=== PATIENT | female | born 1975 | race Caucasian/White ===

== ENCOUNTER 2019-01-15 22:40 | Emergency (ER) | payer BC ==
[~2019-01-15] VITALS: Ht 165.1 cm; Wt 79.4 kg
[2019-01-15 22:54] VITALS: Ht 165.1 cm; Wt 79.4 kg
[2019-01-16 00:36] VITALS: BP 128/74
== END 2019-01-16 00:37 | disposition home or self-care (01) ==
LOC: ED 22:40
DX: S92.512A Displaced fracture of proximal phalanx of left lesser toe(s), initial encounter for closed fracture (principal); Z98.890 Other specified postprocedural states; W22.8XXA Striking against or struck by other objects, initial encounter; Y93.89 Activity, other specified; Y92.89 Other specified places as the place of occurrence of the external cause; Y99.8 Other external cause status
CPT/HCPCS: J2001; Q0092